=== PATIENT | female | born 1970 | race Caucasian/White ===

== ENCOUNTER 2016-07-12 03:03 | Emergency (ER) | payer SELFPAY ==
[2016-07-12 04:01] LABS: ABSOLUTE BASOPHILS # (AUTO) 0.1 10^3/uL (0.0-0.2); ABSOLUTE EOSINOPHILS # (AUTO) 0.1 10^3/uL (0.0-0.6); ABSOLUTE LYMPHOCYTES (AUTO) 1.8 10^3/uL (0.5-4.7); ABSOLUTE MONOCYTES (AUTO) 0.3 10^3/uL (0.1-1.4); ABSOLUTE NEUT (AUTO) 5.5 10^3/uL (1.7-8.2); BASOPHILS % (AUTO) 0.9 % (0-2); EOSINOPHILS % (AUTO) 1.2 % (0-6); HEMATOCRIT 38.7 % (36.0-47.0); HEMOGLOBIN 12.7 g/dL (12.0-15.5); HGB HCT DIFFERENCE -0.6; LYMPHOCYTES % (AUTO) 22.8 % (13-45); MEAN CORPUSCULAR HEMOGLOBIN 28.8 pg (27.0-33.4); MEAN CORPUSCULAR HGB CONC 32.8 g/dL (32.0-36.0); MEAN CORPUSCULAR VOLUME 88 fl (80-97); MONOCYTES % (AUTO) 4.2 % (3-13); RED BLOOD COUNT 4.42 10^6/uL (3.72-5.28); RED CELL DISTRIBUTION WIDTH 14.4 % (11.5-14.0); SEGMENTED NEUTROPHILS % (AUTO) 70.9 % (42-78); WHITE BLOOD COUNT 7.7 10^3/uL (4.0-10.5)
--- NOTE | 2016-07-12 04:01 | ER Document Report ---
ED General - General TRAVEL OUTSIDE OF THE [place] IN LAST 30 DAYS: No <LILIBETH GARZA - Last Filed: 07/12/16 04:34> <JOSÉ RAM - Last Filed: 07/12/16 10:22> - General Chief Complaint: Suicidal Ideation Stated Complaint: DEPRESSION Notes: Patient is a 45-year-old female presents with complaint of severe depression and suicidal threats. Patient says she had too much to drink tonight. She became emotionally upset and then took a knife and threatened to stab herself chest. She does not awaken more sober. Patient says that she is unsure why she did this. She says she does have baseline depression. She says she is usually able to manage on her own however had too much to drink tonight he became upset. She's never tried herself in the past. She says she does drink every other day. She does not go through withdrawal when not drinking. She denies any drug abuse. She's been on Prozac and trazodone. She's not been on these medications for several months. She has no other complaints at this time. (LILIBETH GARZA) - Related Data Allergies/Adverse Reactions: ampicillin [Ampicillin] Allergy (Verified 07/12/16 03:43) Home Medications: Current Home Medications Trazodone HCl 1 tab PO QHS 07/12/16 [History] Past Medical History - Social History Smoking Status: Never Smoker Chew tobacco use (# tins/day): No Frequency of alcohol use: None Drug Abuse: None Family History: Reviewed & Not Pertinent Patient has suicidal ideation: No Patient has homicidal ideation: No Renal/ Medical History: Denies: Hx Peritoneal Dialysis Past Surgical History: Reports: Hx Section, Hx Tubal Ligation - Immunizations Hx Diphtheria, Pertussis, Tetanus Vaccination: Yes <LILIBETH GARZA - Last Filed: 07/12/16 04:34> Review of Systems <LILIBETH GARZA - Last Filed: 07/12/16 04:34> <JOSÉ RAM - Last Filed: 07/12/16 10:22> - Review of Systems Notes: My Normal Review Basic REVIEW OF SYSTEMS: CONSTITUTIONAL : Denies fever, chills, or sweats. Denies recent illness. EENT: Denies eye, ear, throat, or mouth pain or symptoms. Denies nasal or sinus congestion. RESPIRATORY: Denies cough, cold, or chest congestion. Denies shortness of breath, difficulty breathing, or wheezing. GASTROINTESTINAL: Denies abdominal pain. Denies nausea, vomiting, or diarrhea. Denies constipation. Last BM: MUSCULOSKELETAL: Denies neck or back pain or joint pain or swelling. SKIN: Denies rash or skin lesions. NEUROLOGICAL: Denies altered mental status or loss of consciousness. Denies headache. Denies weakness or paralysis or loss of use of either side. Denies problems with gait or speech. Denies sensory or motor loss. Psychiatric: Depression ALL OTHER SYSTEMS REVIEWED AND NEGATIVE. (LILIBETH GARZA) Physical Exam <LILIBETH GARZA - Last Filed: 07/12/16 04:34> <JOSÉ RAM - Last Filed: 07/12/16 10:22> - Vital signs Vitals: Temp Pulse Resp BP Pulse Ox 97.4 F 81 17 127/87 H 94 07/12/16 03:09 07/12/16 03:09 07/12/16 03:09 07/12/16 03:09 07/12/16 03:09 (LILIBETH GARZA) (JOSÉ RAM) - Notes Notes: General Appearance: Well nourished, alert, cooperative, no acute distress, no obvious discomfort. Well-appearing. Vitals: reviewed, See vital signs table. Head: no swelling or tenderness to the head Eyes: PERRL, EOMI, Conjuctiva clear Lungs: No wheezing, No rales, No rhonci, No accessory muscle use, good air exchange bilaterally. Heart: Normal rate, Regular rythm, No murmur, no rub Abdomen: Normal BS, soft, No rigidity, No abdominal tenderness, No guarding, no rebound, no abdominal masses, no organomegaly Extremities: strength 5/5 in all extremities, good pulses in all extremities, no swelling or tenderness in the extremities, no edema. Skin: warm, dry, appropriate color, no rash Neuro: speech clear, oriented x 3, normal affect, responds appropriately to questions. (LILIBETH GARZA) Course - Laboratory Result Diagrams: 07/12/16 03:48 07/12/16 03:48 <LILIBETH GARZA - Last Filed: 07/12/16 04:34> - Laboratory Result Diagrams: 07/12/16 03:48 07/12/16 03:48 <JOSÉ RAM - Last Filed: 07/12/16 10:22> - Vital Signs Vital signs: Temp Pulse Resp BP Pulse Ox 97.8 F 80 18 125/74 97 07/12/16 08:20 07/12/16 08:20 07/12/16 08:20 07/12/16 08:20 07/12/16 08:20 (LILIBETH GARZA) (JOSÉ RAM) - Laboratory Laboratory results interpreted by me: 07/12/16 07/12/16 03:48 03:48 RDW 14.4 H Sodium 147.8 H Glucose 123 H Salicylates < 1.0 L Acetaminophen < 10 L (JOSÉ RAM) - EKG Interpretation by Me Additional EKG results interpreted by me: 07/12/16 04:01 EKG is reviewed and interpreted by me. EKG shows normal sinus rhythm with rate of [address] segment elevation or depression. No ischemic T wave inversions. [place] level, QRS duration are within normal range. QTc interval slightly prolonged. Old EKG for comparison is from 05/05/2015. (LILIBETH GARZA) - Transfer of Care Notes: 07/12/16 04:37 Patient is very, appropriate during exam. She denies actual suicidal ideations. She says she's came emotionally upset after drinking too much alcohol. She does agree to stay to be evaluated by psychiatry. At this time I will not place patient on involuntary paperwork as she is voluntary and agreeable to speak with psychiatry. If she changes her mind before psych evaluates her than I will reconsider placing her on involuntary commitment paperwork. Patient is medically stable for psychiatric evaluation. Dictation of this chart was performed using voice recognition software; therefore, there may be some unintended grammatical errors. (LILIBETH GARZA) Discharge <LILIBETH GARZA - Last Filed: 07/12/16 04:34> <JOSÉ RAM - Last Filed: 07/12/16 10:22> - Discharge Clinical Impression: Alcohol abuse Depression Qualifiers: Depression Type: unspecified Qualified Code(s): F32.9 - Major depressive disorder, single episode, unspecified Condition: Stable Disposition: HOME, SELF-CARE Additional Instructions: ACUTE ALCOHOL INTOXICATION and ALCOHOL ABUSE: Your evaluation revealed very high levels of alcohol. You can from drinking a large amount of alcohol rapidly! Further, there's the risk of falls , traffic accidents, and fights. A high portion (about 50 percent) of the serious injuries seen in hospital emergency rooms are caused by alcohol. Alcohol overdosage is usually due to an underlying emotional or psychiatric problem. You may benefit from counselling. If "binge" drinking is an ongoing problem for you, or if you drink ANY AMOUNT of alcohol EVERY day, you most likely have a tendency to alcoholism. You should avoid alcohol totally. We can refer you for treatment. Persons with alcohol problems are often also prone to other addictions -- you should discuss any use of medications or drugs with the doctor. You should be watched at home for the next several hours by someone who has not been drinking. Get extra fluids for the next 24 hours. Call the doctor if there is repeated vomiting, increasing headache, decreasing level of alertness, or any other worsening. INSTRUCTIONS FOR HOME CARE FOLLOWING DRUG OVERDOSAGE: The doctor feels it's safe for you to go home. You will need to be observed. If charcoal and a laxative was given to you, expect some loose black stools soon. Take no medications unless approved by a physician, including alcohol. If drowsy, lie on your stomach or side for sleeping to avoid aspiration if vomiting occurs. Take only liquids by mouth until there is no more nausea. FOR THE OBSERVER: Observe the patient for the next 24 hours and call or go to the hospital if any of the following are noted: prolonged or repeated vomiting, difficulty in arousing, convulsions (seizures or fits), fever, persistent cough, breathing that is too slow or too rapid, or confused or bizarre behavior. If a counselling visit has been arranged, make sure the patient attends. Call the physician or poison control if you have questions. DEPRESSION: Your evaluation reveals that you have mental depression. While symptoms may be vague, they often include disturbance of sleep, fatigue, loss of appetite , and general loss of interest in life. While depression may be a side effect of drugs, or a reaction to a major change in your life, many cases have no known cause. If depression is acute, and related to a major loss in your life, you can expect it to clear completely with time. If you have been depressed a long time , are prone to repeated bouts of depression or low mood, or have been thinking of suicide, get help. Depression can be treated with anti-depressant medication and counselling. Long-term depression will often take a few weeks to clear, even with appropriate medication. Follow-up care is important. SUICIDAL IDEATION: Suicidal ideation is a common medical term for thoughts about suicide, which may be as detailed as a formulated plan, without the suicidal act itself. Although most people who undergo suicidal ideation do not commit suicide, some go on to make suicide attempts. The range of suicidal ideation varies greatly from fleeting to detailed planning, role playing, and unsuccessful attempts. While thoughts about suicide are common, most people do not carry out serious actions to commit suicide. Based upon your evaluation and discussion with you, we do not believe you are currently at risk to act upon your thoughts of suicide. You have agreed to return to the Emergency Department, at any time , if you feel inclined to act upon your suicidal thoughts. FOLLOW-UP CARE: If you have been referred to a physician for follow-up care, call the physician s office for an appointment as you were instructed or within the next two days. If you experience worsening or a significant change in your symptoms, notify the physician immediately or return to the Emergency Department at any time for re-evaluation. You are advised to follow-up as an outpatient at [facility]. Prescriptions: Buspirone HCl [Buspar 10 mg Tablet] 10 mg PO QHS #15 tablet Referrals: [facility] [Provider Group] - Follow up in 3-5 days
[2016-07-12 04:07] LABS: APPEARANCE,URINE SLIGHTLY-CLOUDY; BILIRUBIN,URINE NEGATIVE (NEGATIVE); GLUCOSE, URINE NEGATIVE (NEGATIVE); KETONES,URINE NEGATIVE (NEGATIVE); LEUKOCYTE ESTERASE,URINE NEGATIVE (NEGATIVE); NITRITE,URINE NEGATIVE (NEGATIVE); PROTEIN,URINE NEGATIVE (NEGATIVE); URINE SPECIFIC GRAVITY 1.001; UROBILINOGEN,URINE NEGATIVE mg/dL (<2.0)
[2016-07-12 04:19] LABS: ALANINE AMINOTRANSFERASE 45 U/L (9-52); ALBUMIN 3.8 g/dL (3.5-5.0); ALCOHOL 235 mg/dL (NONE DETECTED); ALKALINE PHOSPHATASE 116 U/L (38-126); ANION GAP 14 (5-19); ASPARTATE AMINO TRANSFERASE 34 U/L (14-36); BILIRUBIN,TOTAL 0.4 mg/dL (0.2-1.3); BLOOD UREA NITROGEN 8 mg/dL (7-20); CARBON DIOXIDE 28 mmol/L (22-30); CHLORIDE 106 mmol/L (98-107); CREATININE RESULT 0.92 mg/dL (0.52-1.25); GLUCOSE 123 mg/dL (75-110); POTASSIUM 3.9 mmol/L (3.6-5.0); SODIUM 147.8 mmol/L (137-145); TOTAL PROTEIN 7.4 g/dL (6.3-8.2)
[2016-07-12 04:26] LABS: URINE BARBITURATES SCREEN NEGATIVE; URINE METHADONE SCREEN NEGATIVE; URINE OPIATES LOW NEGATIVE; URINE PHENCYCLIDINE SCREEN NEGATIVE
[2016-07-12 09:01] VITALS: BP 127/87
--- NOTE | 2016-07-12 09:22 | EKG REPORT ---
SEVERITY:- BORDERLINE ECG - SINUS RHYTHM BORDERLINE T ABNORMALITIES, INFERIOR LEADS : Confirmed by: Nette Singh 12-Jul-2016 09:22:06
--- NOTE | 2016-07-12 10:18 | ER Document Report ---
Doctor's Note Notes: 07/12/16 10:17 Rounds: Chart reviewed and patient interviewed. Since that she does not feel suicidal at this time. She says that she gets this way when she drinks too much alcohol, which she did yesterday. Her admission call level was 235. All of her other lab studies were essentially normal. All of her vital signs are essentially normal. Patient appears to be medically stable for transfer or discharge. Mental health has assessed the patient feels she can be discharged for outpatient follow-up. Audrey Starkey M.D.
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
== END 2016-07-12 10:44 | disposition home or self-care (01) ==
LOC: ER 03:03
DX: F32.9 Major depressive disorder, single episode, unspecified (principal); Z88.0 Allergy status to penicillin; F10.10 Alcohol abuse, uncomplicated; Y90.7 Blood alcohol level of 200-239 mg/100 ml
CPT/HCPCS: 36415; 80053; 80307; 81001; 84703; 85025; 93005; 93010; 99285

== ENCOUNTER 2017-03-01 05:44 | Emergency (ER) | payer SELFPAY ==
--- NOTE | 2017-03-01 06:37 | RADIOLOGY REPORT (SQ) ---
EXAM DESCRIPTION: CHEST PA/LAT COMPLETED DATE/TIME: 03/01/2017 6:27 am REASON FOR STUDY: fall, pain COMPARISON: 05/05/2015. EXAM PARAMETERS: NUMBER OF VIEWS: two views TECHNIQUE: Digital Frontal and Lateral radiographic views of the chest acquired. RADIATION DOSE: NA LIMITATIONS: none FINDINGS: LUNGS AND PLEURA: No opacities, masses or pneumothorax. No pleural effusion. MEDIASTINUM AND HILAR STRUCTURES: No masses or contour abnormalities. HEART AND VASCULAR STRUCTURES: Heart normal size. No evidence for failure. BONES: No acute findings. HARDWARE: None in the chest. OTHER: No other significant finding. IMPRESSION: NO SIGNIFICANT RADIOGRAPHIC FINDING IN THE CHEST. TECHNICAL DOCUMENTATION: JOB ID: [id number] [employer]- All Rights Reserved
--- NOTE | 2017-03-01 06:37 | RADIOLOGY REPORT (SQ) ---
EXAM DESCRIPTION: SHOULDER LEFT 2 OR MORE VIEWS COMPLETED DATE/TIME: 03/01/2017 6:27 am REASON FOR STUDY: fall, pain COMPARISON: None. NUMBER OF VIEWS: Three views. TECHNIQUE: Internal rotation, external rotation, and Y view images acquired of the left shoulder. LIMITATIONS: None. FINDINGS: MINERALIZATION: Normal. BONES: No acute fracture or dislocation. No worrisome bone lesions. JOINTS: No dislocation. VISUALIZED LUNGS AND RIBS: No pneumothorax. No rib fracture. SOFT TISSUES: No radiopaque foreign body. OTHER: No other significant finding. IMPRESSION: NEGATIVE STUDY OF THE LEFT SHOULDER. NO RADIOGRAPHIC EVIDENCE OF ACUTE INJURY. TECHNICAL DOCUMENTATION: JOB ID: [id number] [employer]- All Rights Reserved
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
[2017-03-01 07:31] VITALS: BP 114/63
== END 2017-03-01 07:31 | disposition home or self-care (01) ==
LOC: ER 05:44
DX: S49.92XA Unspecified injury of left shoulder and upper arm, initial encounter (principal); R07.89 Other chest pain; W19.XXXA Unspecified fall, initial encounter; Z88.0 Allergy status to penicillin; Z98.51 Tubal ligation status
CPT/HCPCS: 71020; 99283